=== PATIENT | male | born 1975 | race Caucasian/White ===

== ENCOUNTER 2022-07-26 09:21 | Day surgery (SDC) | payer OTHER ==
[~2022-07-26] VITALS: Ht 182.9 cm; Wt 117.9 kg
[2022-07-26] MEDS ORDERED: LIDOCAINE 2% 100 MG/5 ML UJET TP ONE (11:09)
[2022-07-26] MEDS ORDERED: fentaNYL citrate 0.05 MG/ML VIAL ONE (11:09)
[2022-07-26] MEDS ORDERED: fentaNYL citrate 0.05 MG/ML VIAL IVP ONE (13:15)
== END 2022-07-26 12:45 | disposition home or self-care (01) ==
LOC: MOR 09:21 → MMU 09:22 → MOR 12:45
PROVIDERS: ATTEND Internal Medicine Gastroenterology
DX: Z12.11 Encounter for screening for malignant neoplasm of colon (principal); R14.0 Abdominal distension (gaseous); I10 Essential (primary) hypertension; Z88.0 Allergy status to penicillin; Z79.899 Other long term (current) drug therapy; Z20.822 Contact with and (suspected) exposure to COVID-19
CPT/HCPCS: 45378; 87426; J3010